=== PATIENT | male | born 1965 | race Hispanic/Latino ===

== ENCOUNTER 2023-10-02 15:49 | Emergency (ER) | payer OTHER ==
[2023-10-02] MEDS ORDERED: Lidocaine 1% w/Epinephrine 1:100K 20 ML VIAL ONE (16:21)
[2023-10-02] MEDS ORDERED: Boostrix 0.5 ML (Tdap) VIAL (>/=7 yrs of age) ONE (16:21)
[2023-10-02] MEDS ORDERED: Bacitracin 1 PK ONE (16:59)
== END 2023-10-02 17:07 | disposition home or self-care (01) ==
LOC: MADERS 15:49
DX: S01.01XA Laceration without foreign body of scalp, initial encounter (principal); Z23 Encounter for immunization; W20.8XXA Other cause of strike by thrown, projected or falling object, initial encounter
CPT/HCPCS: 12002; 70450; 90471; 90715

== ENCOUNTER 2023-10-10 11:04 | Emergency (ER) | payer OTHER | END 2023-10-10 11:55 | disposition home or self-care (01) | LOC: MADERS 11:04 | DX: S01.01XD Laceration without foreign body of scalp, subsequent encounter (principal); W18.30XD Fall on same level, unspecified, subsequent encounter ==